=== PATIENT | male | born 1980 ===

== ENCOUNTER 2016-05-02 14:51 | Inpatient (IN) | payer BC ==
[2016-05-03] MEDS ORDERED: OXYCODONE PO PRN (15:33)
[2016-05-03] MEDS ORDERED: ACETAMINOPHEN 650 MG PO PRN (15:33)
[2016-05-03] MEDS ORDERED: ONDANSETRON 0.8 MG/ML UDSYR PO SCH (16:00)
[2016-05-03] MEDS ORDERED: oxyCODONE ORAL SOLUTION 10 MG/0.5 ML UDSYR PO PRN (16:21)
[2016-05-03] MEDS ORDERED: ONDANSETRON 0.8 MG/ML UDSYR PO PRN (16:23)
--- NOTE | 2016-05-03 16:57 | GHP ---
POST ADMISSION PHYSICIAN EVALUATION AND REHABILITATION TREATMENT PLAN. DATE OF ADMISSION: 05/03/2016 DATE OF EVALUATION: 05/03/2016. TIME OF EVALUATION: 1500. REFERRING FACILITY: [facility]. IMPAIRMENT GROUP: [id number]. DATE OF ONSET: 04/22/2016. REFERRING PHYSICIAN: Dr. Perez. CONSULTING PHYSICIANS: He had consultations with Ophthalmology, Dr. Lacey; Neurology, Dr. Trevino; Otolaryngology, Dr. Gregory and Neurosurgery, Dr. Castillo. REHABILITATION DIAGNOSIS: Debility following fall and facial trauma with subarachnoid hemorrhage and mandibular fracture. ETIOLOGIC DIAGNOSIS: Brain plus multiple fractures/amputation. DATE OF SURGERY: 04/23/2016. HISTORY OF PRESENT ILLNESS: The patient is a 35-year-old man who had been ice climbing. After climbing, while [place] from [place] [facility], he slipped and fell approximately 10 feet striking a boulder with his jaw. He had approximately 30 seconds loss of consciousness at the scene. He remembers sliding but does not remember the actual injury. He does remember walking out. He recovered consciousness and was able to walk with help to where an ambulance was able to access him. When he arrived to the emergency department at [facility] [place], he had a [place] Coma Scale of 15. He had considerable swelling of his face and airway, as well as intraoral bleeding, so he had elective intubation. CT scan showed a traumatic subarachnoid hemorrhage as well as blood in the sylvian fissure, which improved on subsequent CTs. He had surgery for his mandibular fractures on 04/23/2016 with fixation of his jaw. He was subsequently extubated and was able to work with physical and occupational therapy and speech therapies. OTHER LABS AND STUDIES IN THE HOSPITAL: His renal function and electrolytes were essentially within normal limits. The most recent determination I have is from 04/28/2016. He had a low calcium at 7. He had a slightly low sodium at 134. He had mild hyponatremia on 05/02/16 with Na 132, improved from 131 on 05/01. CBC on 04/25/2016, two days after surgery, showed anemia with a hemoglobin of 9.3 and hematocrit of 28, and prior to his surgery the hemoglobin was 12.4 and the hematocrit was 37.6. On 05/03/16, hemoglobin was 12.6 and hematocrit was 37.3. US of the lower legs ruled out DVT on 04/29/16. MRI several days into his hospital stay revealed resolution of SAH. Facial bone CT revealed mandibular, maxillary and R orbital fractures, and subsequent surgical fixation of mandibular and maxillary fractures. PRECAUTIONS: He is a fall risk. He has seizure precautions. ACTIVE COMORBIDITIES: He has no tier 1, tier 2, or tier 3 comorbidities. PAST MEDICAL HISTORY: He has no history of medical problems or previous surgeries. PRE-HOSPITAL MEDICATIONS: Reading the hospital record, he may have been taking aspirin. ADMISSION MEDICATIONS: 1. Oxycodone 5 mg per 5 mL solution 5-10 mL q.4 hours p.r.n. 2. Acetaminophen 650 mg q.4 hours as needed. 3. Chlorhexidine 15 mL to the mouth b.i.d. 4. Ondansetron 4 mg by mouth on a p.r.n. basis. ALLERGIES: There are no known drug allergies. FAMILY HISTORY: Noncontributory. PSYCHOSOCIAL HISTORY: He works as a entry level software developer. He lives alone. He has support from friends and family. Most of his family is back in [place]. He is a nonsmoker and he has occasional alcohol use. REVIEW OF SYSTEMS: He currently denies pain and reports he has not needed pain medications since yesterday. He has blurred vision out of the left eye. He denies weakness, numbness or tingling of the extremities. He denies balance abnormalities. He denies cough or dyspnea. He denies fevers or chills. He denies nausea, vomiting, constipation or diarrhea. He denies dysuria or urinary frequency. He denies joint pain or joint swelling other than his jaw, and otherwise a 10-point review of systems is negative. PHYSICAL EXAMINATION: VITALS: Are not yet recorded in the chart. GENERAL: This is a thin man, appears his chronologic age, cooperative, and in no acute distress. HEENT: Extraocular movements are intact. Left eye has considerable periorbital swelling and the pupil is cloudy and difficult to determine if it is reactive. The right eye the pupil is reactive to light. He has massive swelling about the right jaw and temporomandibular joint area. There is no erythema. Mucous membranes are moist and dentition to the extent they can be evaluated appears to be in good condition. His jaw is wired shut. NECK: Supple. HEART: There is a regular rate and rhythm with no murmurs, rubs or gallops. LUNGS: Clear to auscultation bilaterally. ABDOMEN: Soft, nontender , nondistended with normoactive bowel sounds. EXTREMITIES: There is no cyanosis, clubbing or edema. NEUROLOGIC: He is alert and oriented x3. Full cranial nerve exam cannot be accomplished due to his jaw being wired shut, but his speech is clear. His right eye movements are normal. He is able to close his eyes bilaterally. He has normal sensation on his face. He has normal shoulder shrug. There is no focal weakness. Sensation is intact to light touch. Deep tendon reflexes are 2+ bilaterally at the biceps, patellae, and Achilles tendons. He appears to have normal standing balance. SKIN: There is a sutured laceration along the superior lateral border of the right periorbital area. There are sutured lacerations with Steri-Strips posterior to the angle of the mandible bilaterally and skin exam otherwise is normal. CURRENT LEVEL OF FUNCTION PER THE PREADMISSION SCREEN: Regarding diet, feeding , and swallowing, he was having blenderized food due to his wired jaw. For grooming, he required set up. For bathing, he needed assistance. For dressing , he needed assistance. For toileting, he needed assistance. He reports that he was able to dress himself today. Bed mobility was contact guard assist to standby assist and appears to be independent today. Transfers were contact guard assist to standby assist and appeared to be independent today. Balance was poor. Endurance was poor. He ambulated 400 feet with contact guard to standby assist. Regarding communication, he was noted to have some dysarthria due to his jaw being wired. Regarding cognition, mild impairment and memory deficits were noted requiring verbal cues. He was noted to have limited vision on the left side and to have some dizziness with standing. IMPRESSION: The patient is a 35-year-old man who fell while walking on a trail after ice climbing and suffered a traumatic brain injury, subarachnoid hemorrhage and mandibular fractures. He was taken to [facility], where he underwent surgery on 04/23/2016 for ORIF of the mandibular fractures and wiring shut of his jaw. He was briefly intubated but was able to liberated from the ventilator without complication. He has blood loss anemia. He was noted to have cognitive impairment consistent with a postconcussive situation and he did suffer a subarachnoid hemorrhage in his accident. He was stable postsurgically and participating in therapies and so is appropriate for inpatient rehabilitation. He will benefit from therapies with Physical and Occupational Therapy to optimize his mobility and independence with activities of daily living and evaluation and treatment by Speech and Language Pathology regarding cognition. His goal is to return home with home health care and family and friends. For a safe discharge, he will need to achieve modified independence with mobility, ADLs and cognition. He will need to have neurologic education regarding traumatic brain injury. He will need to have nutritional stability with his wired jaw and he will need to have his pain controlled. He will receive therapy with Physical Therapy, Occupational Therapy, and Speech and Language Pathology for 60 minutes for each discipline on 5-7 days per week. His expected duration of stay was initially 14 days, but it seems likely that he will leave sooner than that. It is expected that upon discharge, he will continue to benefit from home therapies including speech and language pathology, occupational therapy and physical therapy, as well as a brain injury support group. ASSESSMENT AND PLAN: 1. Mandibular fracture and left orbital injury due to fall and trauma to the face, status post ORIF of the maxilla and mandible and wiring of the mandible to the maxilla. Physical and occupational therapies to optimize mobility and independence with activities of daily living. Pain control will be continued with acetaminophen and oxycodone, though he has not been needing these for the past day. He will continue on a blenderized diet, and he will have followup on May 10 with Otolaryngology for likely removal of wires. 2. Subarachnoid hemorrhage and concussion. He will have evaluation and treatment per Speech and Language Pathology regarding cognitive issues. He will remain on seizure precautions, and he will be monitored for any neurologic changes. 3. Impaired vision in the left eye. This may affect his safety and functional independence. He has followup planned with Ophthalmology in approximately 1 week and possibly this can be scheduled on May 10 as well. 4. Anemia postsurgical. We will observe for signs or symptoms of dyspnea or continued bleeding and we will monitor his blood counts. 5. Other facial fractures included bilateral maxillary sinus, bilateral inferior orbits, left lateral orbital wall, and left zygomatic arch. 6. Prophylaxis. He is ambulatory and young and his lower extremities were spared of any injury, so he has low risk for deep venous thrombosis and will not be placed on any prophylaxis. /[id number]/MODL MTDD
[2016-05-03] MEDS: CHLORHEXIDINE GLUCONATE 15 ML UDL PO SCH (20:14)
[2016-05-03] MEDS: OXYMETAZOLINE 30 ML NASAL SPRAY EACHNARE SCH (20:23)
[2016-05-04] MEDS: CHLORHEXIDINE GLUCONATE 15 ML UDL PO SCH ×2 (09:34→21:03)
[2016-05-04] MEDS: OXYMETAZOLINE 30 ML NASAL SPRAY EACHNARE SCH ×2 (09:35→21:03)
[2016-05-04] MEDS ORDERED: BISACODYL 10 MG SUPP PR PRN (13:21)
--- NOTE | 2016-05-04 13:25 | PDOREHIP ---
Admission [facility] - Admission - 3 Day Assessment Period Admission Date/Day 1: 05/03/16 Day 2: 05/04/16 Day 3: 05/05/16 - Active Diagnoses Comorbidities and Co-existing Conditions at Admission: [id number]. None of the Above - Skin Conditions Unhealed Pressure Ulcer (1 or more/Stage 1 or >)-Admission: 0. No
--- NOTE | 2016-05-04 13:25 | SOAPPROG ---
SOAP Progress Note Assessment/Plan: Assessment: * Mandibular fracture and left orbital injury due to fall and trauma to the face , status post ORIF of the maxilla and mandible and wiring of the mandible to the maxilla. Physical and occupational therapies to optimize mobility and independence with activities of daily living. Pain control will be continued with acetaminophen and oxycodone. He will continue on a blenderized diet. * Subarachnoid hemorrhage and concussion. He will have evaluation and treatment per Speech and Language Pathology regarding cognitive issues. He will remain on seizure precautions, and he will be monitored for any neurologic changes. * Impaired vision in the left eye. This may affect his safety and functional independence. * Abdominal pain. Trial o enema. If no BM and pain continues, will get abd XR and labs to evaluate furhter. * Anemia postsurgical. We will observe for signs or symptoms of dyspnea or continued bleeding and we will monitor his blood counts. * Other facial fractures included bilateral maxillary sinus, bilateral inferior orbits, left lateral orbital wall, and left zygomatic arch. * Prophylaxis. He is ambulatory and young and his lower extremities were spared of any injury, so he has low risk for deep venous thrombosis and will not be placed on any prophylaxis. Follow-up: May 10 with Otolaryngology for likely removal of wires; Ophthalmology in approximately 1 week; schedule for May 10 if possible. 05/04/16 13:52 Subjective: C/O LLQ abd pain. Feels like gas. Moved bowels yesterday and 3 days ago at acute hospital. Feels constipated. Reduced appetite. Emesis X 1 last night, and c/o acid taste in back of mouth. Denies h/o GERD. No f/c. No dysuria, frequency or sensation of incomplete voiding. Objective: Vital Signs Temp Pulse Resp BP Pulse Ox 36.7 C 88 14 110/71 98 05/03/16 20:00 05/04/16 09:25 05/04/16 09:25 05/04/16 09:25 05/04/16 09:25 05/03/16 05/04/16 05/05/16 05:59 05:59 05:59 Intake Total 1200 904 Output Total 955 450 Balance 245 454 Physical Exam - Physical Exam General Appearance: WD/WN, alert, no apparent distress Respiratory: No respiratory distress, No accessory muscle use Abdomen: normal bowel sounds, soft, other (Tender LLQ), No distended Skin: normal color, warm/dry Neuro/Psych: alert, normal mood/affect, oriented x 3 ICD10 Worksheet Patient Problems: Problems Problem Status Onset Mandible fracture Acute SAH (subarachnoid hemorrhage) Acute TBI (traumatic brain injury) Acute
[2016-05-04] MEDS ORDERED: SENNOSIDES 17.6 MG/10 ML UDL PO PRN (14:02)
[2016-05-05] MEDS: POLYETHYLENE GLYCOL 3350 17 GM PKT PO SCH (09:15)
[2016-05-05] MEDS: OXYMETAZOLINE 30 ML NASAL SPRAY EACHNARE SCH ×2 (09:16→20:28)
[2016-05-05] MEDS: CHLORHEXIDINE GLUCONATE 15 ML UDL PO SCH ×2 (09:16→21:32)
--- NOTE | 2016-05-05 11:25 | SOAPPROG ---
SOAP Progress Note Assessment/Plan: Assessment: * Mandibular fracture and left orbital injury due to fall and trauma to the face , status post ORIF of the maxilla and mandible and wiring of the mandible to the maxilla. Initial FIM 116. I in room and for ADLs Continue Physical and occupational therapies. Pain control will be continued with acetaminophen and oxycodone. He will continue on a blenderized diet. * Subarachnoid hemorrhage and concussion. Minimal impairments to higher level functions. Continue Speech and Language Pathology. He will remain on seizure precautions, and he will be monitored for any neurologic changes. * Gagging and vomiting with chlorhexidine mouth rinse. Consider dilution. Consider delivering with water pic rather than swishing mouth. * Impaired vision in the left eye. Follow-up planned with Ophthalmology. * Abdominal pain. Resolved, bowels moving. * Anemia postsurgical. We will observe for signs or symptoms of dyspnea or continued bleeding and we will monitor his blood counts. * Other facial fractures included bilateral maxillary sinus, bilateral inferior orbits, left lateral orbital wall, and left zygomatic arch. * Prophylaxis. He is ambulatory and young and his lower extremities were spared of any injury, so he has low risk for deep venous thrombosis and will not be placed on any prophylaxis. Follow-up: likely 05/08 with Otolaryngology to assess for removal of wires; follow-up in another week with Ophthalmology. Attended staffing, 15 min. D/W case mgmt, nursing, PT, OT, [employer]. Functionally doing very well but needs someone available at home while jaw is wired in case he has vomiting and aspiration. manager field investigations working on options. Plan for discharge 05/08/16. 05/05/16 11:25 Subjective: Had episode of gagging while rinsing mouth with chlorhexidine, then vomited this morning. Did not have panic or aspiration. O/W w/out complaint. Objective: Vital Signs Temp Pulse Resp BP Pulse Ox 36.4 C 49 L 13 120/78 96 05/05/16 08:00 05/05/16 08:00 05/05/16 08:00 05/05/16 08:00 05/05/16 08:00 05/04/16 05/05/16 05/06/16 05:59 05:59 05:59 Intake Total 1200 1454 1000 Output Total 955 450 Balance 245 1004 1000 - Time Spent With Patient Time Spent With Patient: Greater than 35 minutes floor time today, including more than 50% of time in coordination of care during staffing meeting, and counseling patient. Physical Exam - Physical Exam General Appearance: WD/WN, alert, no apparent distress, thin EENT: other (swelling R cheek) Respiratory: No respiratory distress, No accessory muscle use Cardiac/Chest: No edema Neuro/Psych: no motor/sensory deficits, alert, normal mood/affect, oriented x 3 ICD10 Worksheet Patient Problems: Problems Problem Status Onset Mandible fracture Acute SAH (subarachnoid hemorrhage) Acute TBI (traumatic brain injury) Acute
[2016-05-06] MEDS: CHLORHEXIDINE GLUCONATE 15 ML UDL PO SCH ×2 (09:11→21:40)
[2016-05-06] MEDS: POLYETHYLENE GLYCOL 3350 17 GM PKT PO SCH (09:12)
[2016-05-06] MEDS: OXYMETAZOLINE 30 ML NASAL SPRAY EACHNARE SCH ×2 (09:13→21:40)
--- NOTE | 2016-05-06 17:37 | SOAPPROG ---
SOAP Progress Note Assessment/Plan: Assessment: * Mandibular fracture and left orbital injury due to fall and trauma to the face , status post ORIF of the maxilla and mandible and wiring of the mandible to the maxilla. Initial FIM 116. I in room and for ADLs Continue Physical and occupational therapies. Pain control will be continued with acetaminophen and oxycodone. He will continue on a blenderized diet. * Subarachnoid hemorrhage and concussion. Minimal impairments to higher level functions. Continue Speech and Language Pathology. He will remain on seizure precautions, and he will be monitored for any neurologic changes. * Gagging and vomiting with chlorhexidine mouth rinse. Consider dilution. Consider delivering with water pic rather than swishing mouth. * Impaired vision in the left eye. Follow-up planned with Ophthalmology. * Abdominal pain. Resolved, bowels moving. * Anemia postsurgical. We will observe for signs or symptoms of dyspnea or continued bleeding and we will monitor his blood counts. * Other facial fractures included bilateral maxillary sinus, bilateral inferior orbits, left lateral orbital wall, and left zygomatic arch. * Prophylaxis. He is ambulatory and young and his lower extremities were spared of any injury, so he has low risk for deep venous thrombosis and will not be placed on any prophylaxis. Follow-up: likely 05/08 with Otolaryngology to assess for removal of wires; follow-up in another week with Ophthalmology. Functionally doing very well but needs someone available at home while jaw is wired in case he has vomiting and aspiration. transition manager working on options. Plan for discharge 05/08/16. Subjective: no events. no complaints this a.m. pain well controlled. Objective: Vital Signs Temp Pulse Resp BP Pulse Ox 36.2 C 52 L 16 106/61 96 05/06/16 08:00 05/06/16 08:00 05/06/16 08:00 05/06/16 08:00 05/06/16 08:00 05/05/16 05/06/16 05/07/16 05:59 05:59 05:59 Intake Total 1454 2752 1280 Output Total 450 Balance 1004 2752 1280 - Pending Discharge Pending Discharge Within 24 Hours: No Pending Discharge Within 48 Hours: Yes Pending Discharge Date: 05/08/16 Pending Discharge Time: 11:00 Physical Exam - Physical Exam General Appearance: alert, no apparent distress EENT: other (injected left conjunctiva) Neck: supple Respiratory: lungs clear, normal breath sounds Cardiac/Chest: regular rate, rhythm Abdomen: normal bowel sounds, soft Skin: normal color Neuro/Psych: alert, normal mood/affect, oriented x 3, No cognition abnormalities , No speech abnormalities ICD10 Worksheet Patient Problems: Problems Problem Status Onset Mandible fracture Acute SAH (subarachnoid hemorrhage) Acute TBI (traumatic brain injury) Acute
[2016-05-07] MEDS: POLYETHYLENE GLYCOL 3350 17 GM PKT PO SCH (08:05)
[2016-05-07] MEDS: OXYMETAZOLINE 30 ML NASAL SPRAY EACHNARE SCH ×2 (08:08→21:30)
[2016-05-07] MEDS: CHLORHEXIDINE GLUCONATE 15 ML UDL PO SCH ×2 (08:08→21:29)
--- NOTE | 2016-05-07 14:36 | SOAPPROG ---
SOAP Progress Note Assessment/Plan: Assessment: * Mandibular fracture and left orbital injury due to fall and trauma to the face , status post ORIF of the maxilla and mandible and wiring of the mandible to the maxilla. Initial FIM 116. I in room and for ADLs Continue Physical and occupational therapies. Pain control will be continued with acetaminophen and oxycodone. He will continue on a blenderized diet. * Subarachnoid hemorrhage and concussion. Minimal impairments to higher level functions. Continue Speech and Language Pathology. He will remain on seizure precautions, and he will be monitored for any neurologic changes. * Gagging and vomiting with chlorhexidine mouth rinse. Consider dilution. Consider delivering with water pic rather than swishing mouth. * Impaired vision in the left eye. Follow-up planned with Ophthalmology. * Abdominal pain. Resolved, bowels moving. * Anemia postsurgical. We will observe for signs or symptoms of dyspnea or continued bleeding and we will monitor his blood counts. * Other facial fractures included bilateral maxillary sinus, bilateral inferior orbits, left lateral orbital wall, and left zygomatic arch. * Prophylaxis. He is ambulatory and young and his lower extremities were spared of any injury, so he has low risk for deep venous thrombosis and will not be placed on any prophylaxis. Follow-up: likely 05/08 with Otolaryngology to assess for removal of wires; follow-up in another week with Ophthalmology. Functionally doing very well but needs someone available at home while jaw is wired in case he has vomiting and aspiration. fiscal services manager working on options. Plan for discharge 05/08/16. Subjective: no events. Notes some low back pain with incline walking, no pain with weight baring or at rest. Objective: Vital Signs Temp Pulse Resp BP Pulse Ox 36.6 C 54 L 14 116/64 96 05/07/16 08:00 05/07/16 08:00 05/07/16 08:00 05/07/16 08:00 05/07/16 08:00 05/06/16 05/07/16 05/08/16 05:59 05:59 05:59 Intake Total 2752 1280 1330 Balance 2752 1280 1330 - Pending Discharge Pending Discharge Within 24 Hours: Yes Pending Discharge Within 48 Hours: Yes Pending Discharge Date: 05/08/16 Pending Discharge Time: 11:00 Physical Exam - Physical Exam General Appearance: alert, no apparent distress EENT: No EOM palsy Neck: supple Respiratory: lungs clear Cardiac/Chest: regular rate, rhythm Abdomen: normal bowel sounds, non-tender Skin: normal color, warm/dry Neuro/Psych: alert, normal mood/affect, oriented x 3, No cognition abnormalities ICD10 Worksheet Patient Problems: Problems Problem Status Onset Mandible fracture Acute SAH (subarachnoid hemorrhage) Acute TBI (traumatic brain injury) Acute
[2016-05-07] MEDS ORDERED: IBUPROFEN SUSP 100 MG/5 ML UDCUP PO PRN (17:12)
[2016-05-07] MEDS ORDERED: IBUPROFEN SUSP 100 MG/5 ML UDCUP PO ONE (17:15)
[2016-05-07 21:10] VITALS: RESP 16; O2SAT 97
[2016-05-07] MEDS: ACETAMINOPHEN 650 MG/20.3 ML UDCUP PO PRN (21:31)
[2016-05-08] MEDS: POLYETHYLENE GLYCOL 3350 17 GM PKT PO SCH (08:08)
[2016-05-08] MEDS: OXYMETAZOLINE 30 ML NASAL SPRAY EACHNARE SCH (08:10)
[2016-05-08] MEDS: CHLORHEXIDINE GLUCONATE 15 ML UDL PO SCH (08:11)
[2016-05-08 08:59] VITALS: BP 111/67; PULSE 53; TEMP 96.8
[2016-05-08] MEDS ORDERED: SENNOSIDES 17.6 MG/10 ML UDL PO PRN (09:28)
[2016-05-08] MEDS ORDERED: TAMSULOSIN HCL 0.4 MG CAP PO SCH (09:30)
[2016-05-08] MEDS: ACETAMINOPHEN 650 MG/20.3 ML UDCUP PO PRN (13:17)
[2016-05-08] MEDS ORDERED: SENNOSIDES 17.6 MG/10 ML UDL PO SCH (21:00)
--- NOTE | 2016-05-09 18:04 | GDS ---
DISCHARGE DIAGNOSIS: Facial trauma, and maxillary mandibular and left orbital fractures. DISCHARGE DIAGNOSIS: Facial trauma, and maxillary mandibular and left orbital fractures. CONSULTATIONS: There were none. PROCEDURES: There were none. COMPLICATIONS: There were none. HISTORY AND HOSPITAL COURSE: The patient had a fall while hiking out from a [place], on which he had been ice climbing. He fell approximately 10 feet and struck a boulder with his jaw. He had about a 30 second loss of consciousness at the scene. He was able to walk out to where an ambulance was able to access him. He was taken to [facility], where he had imaging which showed mandibular, maxillary and other facial fractures, and a traumatic subarachnoid hemorrhage. The hemorrhage resolved on subsequent CTs. He had surgery for his mandibular fracture with fixation of the jaw, and he came to [facility]. He did very well in rehabilitation. His initial Functional Rankin Measure (FIM) was 116 on 05/05/2016. This was consistent with independent function. He was made independent in his room for mobility and activities of daily living. He was evaluated by Speech and Language Pathology regarding a concussion. He was found to have very minimal impairments in higher level of function. He had been prescribed chlorhexidine mouth rinse. When he did his mouth rinses , he would get gagging and at times he vomited. He was very concerned about the risk of aspirating vomit while his jaw was wired shut and he was keeping wire cutters with him. This was discussed with his surgeon, who recommended that he did not need to continue the chlorhexidine. He had impaired vision in the left eye, likely due to swelling from the orbital fracture on the left. He had abdominal pain, which resolved once his bowels were moving. Pain was effectively managed with oxycodone oral solution and constipation was managed with polyethylene glycol. Additionally, he was using oxymetazoline nasal spray on a p.r.n. basis to facilitate breathing through his nose with his jaw wired. DISCHARGE PLAN: Condition upon discharge is good. Activity is ad maira, but no driving. Diet: Continue a blenderized diet until the jaw wiring can be discontinued. Date of next appointment: He is to follow up with Otolaryngology on 05/11/2016. MEDICATIONS UPON DISCHARGE: 1. Chlorhexidine 50 mg p.o. b.i.d. daily p.r.n. swish and spit. 2. Acetaminophen 650 mg p.o. q.4 hours p.r.n. 3. Oxycodone oral solution 5-10 mg q.4 hours p.r.n. 4. Polyethylene glycol 17 g p.o. daily. 5. Oxymetazoline 1 spray each naris b.i.d. p.r.n. 6. Ondansetron 4 mg p.o. q.6 hours p.r.n. ISSUES TO BE ADDRESSED AT FOLLOWUP: 1. Status of mandibular and maxillary fractures with followup. He will follow up with Dr. Blake, Otolaryngology, on 05/11/2016. 2. Diplopia and left orbital fracture. He will follow up with Dr. Travis, Ophthalmology, on 05/11/2016. 3. Concussion and status post subarachnoid hemorrhage. He will continue speech and language pathology at home regarding higher level cognitive functions , and he will follow up with Dr. Trevino of Neurology in approximately a week. Copy requested to: Joe Trevino Dr. Neurology at [facility] [place] Blake, [facility] Abhijit Travis, Dr. White with Ophthalmology /[id number]/MODL MTDD
== END 2016-05-08 13:46 | disposition home or self-care (01) | DRG 946 ==
LOC: BREH 05-03 14:50
PROVIDERS: ADMIT Internal Medicine; ATTEND Internal Medicine
PROC: F02Z3FZ Grooming/Personal Hygiene Assessment using Assistive, Adaptive, Supportive or Protective Equipment (ICD-10-PCS; principal; 2016-05-03)
PROC: F07Z8FZ Transfer Training Treatment using Assistive, Adaptive, Supportive or Protective Equipment (ICD-10-PCS; principal; 2016-05-03)
PROC: F02Z1FZ Dressing Assessment using Assistive, Adaptive, Supportive or Protective Equipment (ICD-10-PCS; principal; 2016-05-03)
PROC: F02Z0FZ Bathing/Showering Assessment using Assistive, Adaptive, Supportive or Protective Equipment (ICD-10-PCS; principal; 2016-05-03)
PROC: F07Z5YZ Bed Mobility Treatment using Other Equipment (ICD-10-PCS; principal; 2016-05-03)
PROC: F02Z2ZZ Feeding/Eating Assessment (ICD-10-PCS; principal; 2016-05-03)
PROC: F0636ZZ Communicative/Cognitive Integration Skills Treatment of Neurological System - Whole Body (ICD-10-PCS; principal; 2016-05-03)
DX: S06.6X1D Traumatic subarachnoid hemorrhage with loss of consciousness of 30 minutes or less, subsequent encounter (principal); S02.609D Fracture of mandible, unspecified, subsequent encounter for fracture with routine healing; S02.40CD Maxillary fracture, right side, subsequent encounter for fracture with routine healing; S02.40DD Maxillary fracture, left side, subsequent encounter for fracture with routine healing; S02.40FD Zygomatic fracture, left side, subsequent encounter for fracture with routine healing; S02.81XD Fracture of other specified skull and facial bones, right side, subsequent encounter for fracture with routine healing; H53.2 Diplopia; D50.0 Iron deficiency anemia secondary to blood loss (chronic); W00.2XXD Other fall from one level to another due to ice and snow, subsequent encounter; Y93.31 Activity, mountain climbing, rock climbing and wall climbing
CPT/HCPCS: 92507-GN; 92522-GN; 97110-GO; 97110-GP; 97112-GP; 97116-GP; 97162-GP; 97165-GO; 97530-GO; 97532-GO; 97535-GO; 97537-GO